=== PATIENT | female | born 1990 | race Caucasian/White ===

== ENCOUNTER 2019-04-08 10:55 | Emergency (ER) | payer MEDICAID ==
--- NOTE | 2019-04-08 12:26 | ER Document Report ---
HPI - HPI Time Seen by Provider: 04/08/19 12:15 Pain Level: 3 Context: CHIEF COMPLAINT: Coughing with chest pain with cough HPI: 28-year-old female presenting to the emergency department for evaluation of nasal congestion, chest congestion, cough without fever over the last 2 weeks progressively worsening. Had chest pain with coughing at an urgent care today and they referred her into the emergency department. Does not have chest pain without coughing. Denies acute shortness of breath at this time. ROS: See HPI - all other systems were reviewed and are otherwise negative Constitutional: no fever Eyes: no drainage, no blurred vision ENT: no runny nose, no sore throat Cardiovascular: + chest pain with coughing Resp: no SOB, positive cough GI: no vomiting, no diarrhea, no abdominal pain : no dysuria Integumentary: no rash Allergy: no hives Musculoskeletal: no extremity pain or swelling Neurological: no numbness/tingling, no weakness MEDICATIONS: I agree with the patient medications as charted by the RN. ALLERGIES: I agree with the allergies as charted by the RN. PAST MEDICAL HISTORY/PAST SURGICAL HISTORY: Reviewed and agree as charted by RN. SOCIAL HISTORY: Reviewed and agree as charted by RN. FAMILY HISTORY: No significant familial comorbid conditions directly related to patient complaint EXAM: Reviewed vital signs as charted by RN. CONSTITUTIONAL: Alert and oriented and responds appropriately to questions. Well-appearing; well-nourished HEAD: Normocephalic; atraumatic EYES: PERRL; Conjunctivae clear, sclerae non-icteric ENT: normal nose; no rhinorrhea; moist mucous membranes; pharynx without lesions noted, no uvula edema or deviation, no tonsillar hypertrophy, phonation normal NECK: Supple without meningismus; non-tender; no cervical lymphadenopathy, no masses CARD: RRR; no murmurs, no clicks, no rubs, no gallops; symmetric distal pulses RESP: Normal chest excursion without splinting or tachypnea; breath sounds clear and equal bilaterally; no wheezes, no rhonchi, no rales, pulse oximetry 99% on room air not hypoxic. Mild tenderness over the anterior chest wall on palpation ABD/GI: Normal bowel sounds; non-distended; soft, non-tender, no rebound, no guarding; no palpable organomegaly or masses. BACK: The back appears normal and is non-tender to palpation, there is no CVA tenderness EXT: Normal ROM in all joints; non-tender to palpation; no cyanosis, no effusions, no edema SKIN: Normal color for age and race; warm; dry; good turgor; no acute lesions noted NEURO: Moves all extremities equally; Motor and sensory function intact PSYCH: The patient's mood and manner are appropriate. Grooming and personal hygiene are appropriate. MDM: 28-year-old female presenting for congestion and cough for 2 weeks without fever. Chest pain with coughing only low suspicion for ACS. Patient does have a history of rheumatoid arthritis but has not been on Humira over the last 5 weeks. Will obtain chest x-ray and influenza test - REPRODUCTIVE Reproductive: DENIES: : Past Medical History - Social History Smoking Status: Unknown if Ever Smoked Chew tobacco use (# tins/day): No Frequency of alcohol use: None Drug Abuse: None Family History: Reviewed & Not Pertinent Patient has suicidal ideation: No Patient has homicidal ideation: No Vertical Provider Document - INFECTION CONTROL TRAVEL OUTSIDE OF THE [place] IN LAST 30 DAYS: No Course - Re-evaluation Re-evalutation: 04/08/19 13:30 Influenza test negative. Chest x-ray read by radiology as negative for acute findings but patient does appear slightly thickened in the right middle lobe. Will treat for bronchitis, Zithromax, albuterol, Mucinex - Vital Signs Vital signs: Temp Pulse Resp BP Pulse Ox 98.9 F 87 16 112/69 100 04/08/19 11:18 04/08/19 11:18 04/08/19 11:18 04/08/19 11:18 04/08/19 11:18 Discharge - Discharge Clinical Impression: Acute bronchitis with bronchospasm Condition: Stable Disposition: HOME, SELF-CARE Instructions: Bronchitis ([facility]) Additional Instructions: 1. take the medications as prescribed 2. if you were prescribed an Albuterol inhaler, use it as instructed, 2 puffs every 4 hours as needed for cough/wheezing 3. call your primary care provider as soon as possible to schedule recheck appt. in the office. 4. return to the ED for any worsening condition, shortness of breath or continued fever that does not resolve with Motrin/Tylenol Prescriptions: Guaifenesin/Dextromethorphan [Mucinex Dm ER 600-30 mg Tablet] 1 each PO BID #10 tab.er.12h Albuterol Sulfate [Proair HFA Inhalation Aerosol 8.5 gm MDI] 2 puff IH Q4H PRN #1 mdi PRN Reason: Azithromycin [Zithromax 250 mg Tablet] 250 mg PO ASDIR PRN #6 tablet PRN Reason: Referrals: ISMAEL MACKEY MD [ACTIVE STAFF] - Follow up as needed
--- NOTE | 2019-04-08 12:54 | RADIOLOGY REPORT (SQ) ---
EXAM DESCRIPTION: CHEST 2 VIEWS COMPLETED DATE/TIME: 04/08/2019 12:40 pm REASON FOR STUDY: cough COMPARISON: None. EXAM PARAMETERS: NUMBER OF VIEWS: two views TECHNIQUE: Digital Frontal and Lateral radiographic views of the chest acquired. RADIATION DOSE: NA LIMITATIONS: none FINDINGS: LUNGS AND PLEURA: No opacities, masses or pneumothorax. No pleural effusion. MEDIASTINUM AND HILAR STRUCTURES: No masses or contour abnormalities. HEART AND VASCULAR STRUCTURES: Heart normal size. No evidence for failure. BONES: Mild convex rightward thoracic curvature HARDWARE: None in the chest. OTHER: No other significant finding. IMPRESSION: NO ACUTE RADIOGRAPHIC FINDING IN THE CHEST. TECHNICAL DOCUMENTATION: JOB ID: [id number] [employer]- All Rights Reserved Reading location - IP/workstation name: [email or web address]
[2019-04-08 13:18] LABS: A TYPE INFLUENZA AG NEGATIVE (NEGATIVE)
[2019-04-08 13:19] LABS: B INFLUENZA AG NEGATIVE (NEGATIVE)
[2019-04-08 13:51] VITALS: BP 102/64
--- NOTE | 2019-04-08 19:37 | EKG REPORT ---
SEVERITY:- NORMAL ECG - SINUS RHYTHM : Confirmed by: Ai Holman MD 08-Apr-2019 19:36:57
== END 2019-04-08 13:49 | disposition home or self-care (01) ==
LOC: ER 10:55
DX: J20.9 Acute bronchitis, unspecified (principal); R07.9 Chest pain, unspecified; R09.81 Nasal congestion
CPT/HCPCS: 71046; 87804; 93005; 93010